=== PATIENT | male | born 1965 | race Caucasian/White ===

== ENCOUNTER 2023-07-31 10:00 | Outpatient (CLI) | payer OTHER | END 2023-07-31 10:01 | disposition home or self-care (01) | LOC: BICRAD 10:00 | PROVIDERS: ATTEND Preventive Medicine Occupational Medicine | DX: M25.561 Pain in right knee (principal); M79.641 Pain in right hand; M54.50 Low back pain, unspecified; M17.11 Unilateral primary osteoarthritis, right knee; M48.8X7 Other specified spondylopathies, lumbosacral region | CPT/HCPCS: 72100 ==